=== PATIENT | male | born 1990 | race Caucasian/White ===

== ENCOUNTER 2018-01-10 00:52 | Emergency (ER) | payer OTHER ==
[2018-01-10 00:57] VITALS: BP 101/65
--- NOTE | 2018-01-10 01:27 | EDPHY ---
H & P Stated Complaint: tissue stuck in L ear Time Seen by Provider: 01/10/18 01:11 HPI/ROS: HPI The patient presents with foreign body in left ear for the last 1 hr. He was at a loud music concert and put tissues in both of his ears which she was unable to retrieve from his left ear. He put water in his ear over hoping to flush it out, however he was not able to retrieve it.. REVIEW OF SYSTEMS 10 systems were reviewed and negative with the exception of the elements mentioned in the history of present illness. PMHx: Healthy PHYSICAL General Appearance: Alert, no distress ENT, Mouth: Left ear canal with tissue in it Respiratory: Breathing comfortably Skin: Warm and dry, no rashes Psychiatric: Patient is oriented X 3, there is no agitation Source: Patient Exam Limitations: No limitations - Personal History Current Tetanus/Diphtheria Vaccine: Unsure Current Tetanus Diphtheria and Acellular Pertussis (TDAP): Unsure - Medical/Surgical History Hx Asthma: No Hx Chronic Respiratory Disease: No Hx Diabetes: No Hx Cardiac Disease: No Hx Renal Disease: No Hx Cirrhosis: No Hx Alcoholism: No Hx HIV/AIDS: No Hx Splenectomy or Spleen Trauma: No - Social History Smoking Status: Never smoked Constitutional: Initial Vital Signs Temperature (C) 36.5 C 01/10/18 00:55 Heart Rate 58 L 01/10/18 00:55 Respiratory Rate 16 01/10/18 00:55 Blood Pressure 101/65 01/10/18 00:55 O2 Sat (%) 95 01/10/18 00:55 O2 Delivery Mode Room Air Allergies/Adverse Reactions: Penicillins Allergy (Verified 01/10/18 00:57) Medical Decision Making Differential Diagnosis: 27-year-old male with 1 hr of tissue which is wet in his left ear canal. Using a lighted curette I was able to remove the tissue easily. On reinspection his TM is intact with no erythema of his ear canal. We have issued him a pair of ear plugs to use in the future if he is attending a loud concert. I have given him follow-up for ENT if needed. Departure - Departure Disposition: Home, Routine, Self-Care Clinical Impression: Foreign body in left ear Qualifiers: Encounter type: initial encounter Qualified Code(s): T16.2XXA - Foreign body in left ear, initial encounter Condition: Good Instructions: Ear Foreign Body (ED) Additional Instructions: Please avoid putting anything in your ears. I have given you follow-up information for Dr. Valadez if you have any ongoing trouble hearing. Referrals: David Valadez MD [Medical Doctor] - As per Instructions
== END 2018-01-10 01:30 | disposition home or self-care (01) ==
LOC: EDSEX 00:52 → MERGE 00:52
DX: T16.2XXA Foreign body in left ear, initial encounter (principal); Y92.9 Unspecified place or not applicable